=== PATIENT | female | born 1985 | race Hispanic/Latino ===

== ENCOUNTER 2018-08-11 05:40 | Emergency (ER) | payer OTHER ==
[2018-08-11 05:58] VITALS: BP 142/91; PULSE 55; RESP 14; TEMP 98.7; O2SAT 100
--- NOTE | 2018-08-11 06:02 | ED PDOC ---
Lower Extremity Pain/Injury Time Seen by Provider: 08/11/18 05:46 Chief Complaint (Nursing): Lower Extremity Problem/Injury Chief Complaint (Provider): Left 3rd toe injury History Per: Patient History/Exam Limitations: no limitations Onset/Duration Of Symptoms: Mins Current Symptoms Are (Timing): Still Present Severity: Moderate Pain Scale Rating Of: 6 Additional History Per: Patient Additional Complaint(s): 33yo female, comes to ER reporting pain to her left 3rd toe. Patient states she tripped on a duvet and her left 3rd toe was caught and "pulled the wrong way." She denies any weakness, numbness, and offers no other complaints. Past Medical History Reviewed: Historical Data, Nursing Documentation, Vital Signs Vital Signs: Last Vital Signs Temp 98.7 F 08/11/18 05:54 Pulse 55 L 08/11/18 05:54 Resp 14 08/11/18 05:54 BP 142/91 H 08/11/18 05:54 Pulse Ox 100 08/11/18 05:54 - Medical History PMH: No Chronic Diseases - Surgical History Surgical History: No Surg Hx - Family History Family History: States: No Known Family Hx - Allergies Allergies/Adverse Reactions: Allergies Allergy/AdvReac Type Severity Reaction Status Date / Time No Known Allergies Allergy Verified 08/11/18 05:54 Review of Systems ROS Statement: Except As Marked, All Systems Reviewed And Found Negative Musculoskeletal: Positive for: Other (left 3rd toe injury) Neurological: Negative for: Weakness, Numbness Physical Exam - Reviewed Nursing Documentation Reviewed: Yes Vital Signs Reviewed: Yes - Physical Exam Appears: Positive for: Non-toxic, No Acute Distress Pulses-Dorsalis Pedis (L): 2+ Pulses-Dorsalis Pedis (R): 2+ Extremity: Positive for: Normal ROM (FROM of left foot and toes.), Tenderness (tenderness and ecchymosis noted to left 3rd toe), Capillary Refill (< 2 seconds), Other (neurovascular sensations intact). Negative for: Pedal Edema, Deformity Neurologic/Psych: Positive for: Alert, Oriented. Negative for: Motor/Sensory Deficits - ECG O2 Sat by Pulse Oximetry: 100 (RA) Pulse Ox Interpretation: Normal Medical Decision Making Medical Decision Making: Assessment: Left 3rd toe injury Plan: * XR left foot, 3rd toe * Motrin 600mg PO 06:30 XR reviewed, non-displaced fracture noted to left 3rd middle phalanx. Patient informed of XR findings and informed this is a preliminary read, patient will be informed if final read presents with different findings. Toes placed in paola wrapping and patient placed in surgical shoe. Repeat exam, patient with good capillary refill and distal sensations are intact. Patient stable for discharge home; instructed to f/u with PMD/dehorner. Scribe Attestation: Documented by Nandini Pizarro, acting as a scribe for Jayant Grace MD. Provider Scribe Attestation: All medical record entries made by the Scribe were at my direction and personally dictated by me. I have reviewed the chart and agree that the record accurately reflects my personal performance of the history, physical exam, medical decision making, and the department course for this patient. I have also personally directed, reviewed, and agree with the discharge instructions and disposition. Disposition - Clinical Impression Clinical Impression: Toe fracture - Disposition Referrals: Podiatry Clinic [Outside] Disposition: Routine/Home Disposition Time: 06:32 Condition: GOOD Instructions: Toe Fracture Forms: [facility] (Malay)
--- NOTE | 2018-08-11 12:44 | RAD ---
Date of service: 08/11/2018 PROCEDURE: Left Foot Radiographs. HISTORY: got caught in duvet, "pulled" COMPARISON: Left foot radiographs dated 03/22/2010 FINDINGS: BONES: Nondisplaced oblique fracture of the 3rd proximal phalanx. Old healed fracture of the base of the 5th metatarsal. JOINTS: Normal. SOFT TISSUES: Normal. OTHER FINDINGS: None. IMPRESSION: Nondisplaced oblique fracture of the 3rd proximal phalanx.
== END 2018-08-11 07:22 | disposition home or self-care (01) ==
LOC: H.ER 05:40
DX: S92.515A Nondisplaced fracture of proximal phalanx of left lesser toe(s), initial encounter for closed fracture (principal); W19.XXXA Unspecified fall, initial encounter; Y92.89 Other specified places as the place of occurrence of the external cause